=== PATIENT | male | born 1940 | race Caucasian/White ===

== ENCOUNTER 2021-04-12 10:08 | Outpatient (CLI) | payer MEDICARE, SELFPAY ==
--- NOTE | ~2021-04-12 | XR_ITS ---
EXAMINATION: XR toe 1st RT min 2V DATE: 04/12/2021 11:03 INDICATION: Right great toe pain. Gout. TECHNIQUE: Dorsal plantar, lateral and 2 oblique views of the right first toe were obtained. COMPARISON: None FINDINGS: Bone alignment is normal. No fracture. Polyarticular osteoarthritis, moderate severity at the first m etatarsophalangeal joint and minimal to mild at a few tarsal metatarsal and interphalangeal joints. N o erosions to suggest gout or other inflammatory arthritis. Small heterotopic ossification at the diamante ntar aspect of the foot posteriorly along the plantar aponeurosis. IMPRESSION: Moderate osteoarthritis at the first metatarsophalangeal joint. Reviewed, dictated and finalized at location A.
[2021-04-12 20:50] LABS: Hematocrit 44.2 % (42.0-52.0); Mean Corpuscular HGB Conc 31.7 g/dl (32-36); Mean Corpuscular Volume 104.2 fl (80-100); Mean Platelet Volume 11.5 fl (7.4-10.4); Platelet Count Result 257 k/mm3 (150-375); Red Blood Count 4.24 M/mm3 (4.6-6.20); White Blood Count 4.8 K/mm3 (4.5-10.0)
[2021-04-12 20:59] LABS: Alanine Aminotransferase 15 U/L (4-50); Albumin Level 4.4 g/dL (3.5-5.1); Alkaline Phosphatase 121 U/L (38-126); Anion Gap 8 mmol/L (8-16); Aspartate Amino Transferase 25 U/L (17-59); Bilirubin,Total 0.6 mg/dL (0.2-1.3); Blood Urea Nitrogen 16 mg/dL (9-20); Carbon Dioxide 29 mmol/L (22-30); Chloride 105 mmol/L (98-107); Cholesterol 184 mg/dL (0-200); Estimated Glomerular Filt Rate 53; Glucose 84 mg/dL (65-110); HDL Direct 67 mg/dL; Potassium 4.6 mmol/L (3.4-5.0); Sodium 142 mmol/L (137-145); Triglycerides 122 mg/dL (<150); Uric Acid 3.6 mg/dL (3.5-8.5)
[2021-04-12 21:12] LABS: LDL Cholesterol Direct 101 mg/dL
[2021-04-12 21:29] LABS: Prostate Specific Antigen 0.5 ng/mL (< OR = 4.0)
[2021-04-13 13:56] LABS: Free T4 Free Thyroxine Reflex 1.25 ng/dL (0.78-2.19)
[2021-04-13 15:01] LABS: Total Triiodothyronine (T3) 1.19 NG/ML (0.97-1.69)
[2021-04-19 13:34] LABS: Amphetamines NEGATIVE ng/mL (<500); Barbiturates NEGATIVE ng/mL (<300); Benzodiazepines NEGATIVE ng/mL (<100); Cocaine Metabolite NEGATIVE ng/mL (<100); Codeine NEGATIVE ng/mL (<50); Hydrocodone 230 ng/mL (<50); Hydromorphone NEGATIVE ng/mL (<50); Marijuana Metabolite NEGATIVE ng/mL (<20); Methadone Metabolite NEGATIVE ng/mL (<100); Morphine NEGATIVE ng/mL (<50); Norhydrocodone 570 ng/mL (<50); Opiates POSITIVE ng/mL (<100); Oxidant NEGATIVE mcg/mL (<200)
== END 2021-04-12 10:09 | disposition home or self-care (01) ==
PROVIDERS: PCP Family Medicine; Visit Provider Family Medicine
DX: B35.1 Tinea unguium (principal); M10.9 Gout, unspecified; E78.5 Hyperlipidemia, unspecified; Z00.00 Encounter for general adult medical examination without abnormal findings; Z79.899 Other long term (current) drug therapy; Z12.5 Encounter for screening for malignant neoplasm of prostate; F41.9 Anxiety disorder, unspecified
CPT/HCPCS: 36415; 73660; 80053; 80061; 80299; 84153; 84439; 84443; 84480; 84550; 85027; G0103

== ENCOUNTER 2021-04-20 08:17 | Outpatient (CLI) | payer MEDICARE, SELFPAY ==
[2021-04-20 23:08] LABS: Free T4 Free Thyroxine Reflex 1.24 ng/dL (0.78-2.19)
[2021-04-21 01:17] LABS: Total Triiodothyronine (T3) 1.15 NG/ML (0.97-1.69)
== END 2021-04-20 08:18 | disposition home or self-care (01) ==
PROVIDERS: PCP Family Medicine; Visit Provider Family Medicine
DX: Z51.81 Encounter for therapeutic drug level monitoring (principal); Z79.899 Other long term (current) drug therapy
CPT/HCPCS: 36415; 84439; 84443; 84480

== ENCOUNTER 2021-10-20 08:26 | Outpatient (CLI) | payer MEDICARE, SELFPAY ==
[2021-10-20 18:21] LABS: Hematocrit 44.2 % (42.0-52.0); Hemoglobin 14.1 g/dL (14.0-18.0); Mean Corpuscular HGB Conc 31.9 g/dl (32-36); Mean Corpuscular Hemoglobin 32.7 pg (26-34); Mean Corpuscular Volume 102.6 fl (80-100); Mean Platelet Volume 11.3 fl (7.4-10.4); Platelet Count Result 218 k/mm3 (150-375); Red Blood Count 4.31 M/mm3 (4.6-6.20); White Blood Count 5.2 K/mm3 (4.5-10.0)
[2021-10-20 18:28] LABS: Alanine Aminotransferase 17 U/L (4-50); Alkaline Phosphatase 104 U/L (38-126); Anion Gap 9 mmol/L (8-16); Aspartate Amino Transferase 25 U/L (17-59); Bilirubin,Total 0.4 mg/dL (0.2-1.3); Blood Urea Nitrogen 18 mg/dL (9-20); Calcium 8.6 mg/dL (8.4-10.2); Carbon Dioxide 23 mmol/L (22-30); Chloride 108 mmol/L (98-107); Cholesterol 196 mg/dL (0-200); Estimated Glomerular Filt Rate 53; Glucose 127 mg/dL (65-110); HDL Direct 66 mg/dL; Potassium 4.7 mmol/L (3.4-5.0); Sodium 140 mmol/L (137-145); Triglycerides 75 mg/dL (<150); Uric Acid 8.6 mg/dL (3.5-8.5)
[2021-10-20 18:39] LABS: LDL Cholesterol Direct 103 mg/dL
[2021-10-20 20:09] LABS: Total Triiodothyronine (T3) 1.04 NG/ML (0.97-1.69)
[2021-10-23 14:43] LABS: Amphetamines NEGATIVE ng/mL (<500); Barbiturates NEGATIVE ng/mL (<300); Benzodiazepines NEGATIVE ng/mL (<100); Cocaine Metabolite NEGATIVE ng/mL (<100); Codeine NEGATIVE ng/mL (<50); Hydrocodone NEGATIVE ng/mL (<50); Hydromorphone NEGATIVE ng/mL (<50); Marijuana Metabolite NEGATIVE ng/mL (<20); Methadone Metabolite NEGATIVE ng/mL (<100); Morphine NEGATIVE ng/mL (<50); Norhydrocodone NEGATIVE ng/mL (<50); Noroxycodone 170 ng/mL (<50); Opiates NEGATIVE CONFIRMED ng/mL (<100); Oxidant NEGATIVE mcg/mL (<200); pH 6.5 (4.5-9.0)
[2021-10-24 03:11] LABS: Thyroid Peroxidase Antibodies <1 IU/mL (<9)
== END 2021-10-20 08:27 | disposition home or self-care (01) ==
LOC: ANHBWCLAB 08:28
PROVIDERS: PCP Family Medicine; Visit Provider Family Medicine
DX: E78.5 Hyperlipidemia, unspecified (principal); F41.9 Anxiety disorder, unspecified; M10.9 Gout, unspecified; R79.89 Other specified abnormal findings of blood chemistry; Z79.899 Other long term (current) drug therapy
CPT/HCPCS: 36415; 80053; 80061; 80299; 84439; 84443; 84480; 84550; 85027; 86376

== ENCOUNTER 2022-04-21 08:34 | Outpatient (CLI) | payer MEDICARE, SELFPAY ==
[2022-04-21 18:37] LABS: Hematocrit 38.9 % (42.0-52.0); Hemoglobin 12.2 g/dL (14.0-18.0); Mean Corpuscular HGB Conc 31.4 g/dl (32-36); Mean Corpuscular Hemoglobin 31.8 pg (26-34); Mean Corpuscular Volume 101.3 fl (80-100); Platelet Count Result 216 k/mm3 (150-375); Red Blood Count 3.84 M/mm3 (4.6-6.20); Red Cell Distribution Width 13.3 % (11.5-14.5); White Blood Count 4.8 K/mm3 (4.5-10.0)
[2022-04-21 20:12] LABS: Free T4 Free Thyroxine 1.18 ng/mL (0.78-2.19)
[2022-04-21 20:28] LABS: Anion Gap 11 mmol/L (8-16); Blood Urea Nitrogen 21 mg/dL (9-20); Calcium 8.8 mg/dL (8.4-10.2); Carbon Dioxide 25 mmol/L (22-30); Chloride 107 mmol/L (98-107); Estimated Glomerular Filt Rate > 60; Glucose 81 mg/dL (65-110); Potassium 4.1 mmol/L (3.4-5.0); Sodium 143 mmol/L (137-145)
[2022-04-24 05:28] LABS: Triiodothyronine T3 Free 2.9 pg/mL (2.3-4.2)
== END 2022-04-21 08:35 | disposition home or self-care (01) ==
PROVIDERS: PCP Family Medicine; Visit Provider Family Medicine
DX: R79.89 Other specified abnormal findings of blood chemistry (principal); M10.9 Gout, unspecified; D64.9 Anemia, unspecified; Z51.81 Encounter for therapeutic drug level monitoring; Z79.899 Other long term (current) drug therapy
CPT/HCPCS: 36415; 80048; 84439; 84443; 84481; 85027

== ENCOUNTER 2022-08-04 08:51 | Outpatient (CLI) | payer MEDICARE, SELFPAY ==
[2022-08-04 19:48] LABS: Basophils Absolute Auto 0.1 K/mm3 (0.0-0.1); Basophils Percent Auto 1.3 % (0.2-1.2); Eosinophils Absolute Auto 0.3 K/mm3 (0-0.3); Eosinophils Percent Auto 4.8 % (0-4.4); Hematocrit 42.7 % (42.0-52.0); Hemoglobin 13.5 g/dL (14.0-18.0); Immature Granulocyte Absolute 0.01 K/mm3 (0.00-0.031); Immature Granulocyte Percent A 0.2 % (0-0.5); Lymphocytes Absolute Auto 1.28 K/mm3 (0.9-3.2); Lymphocytes Percent Auto 23.8 % (18.3-44.2); Mean Corpuscular HGB Conc 31.6 g/dl (32-36); Mean Corpuscular Volume 101.2 fl (80-100); Mean Platelet Volume 11.6 fl (7.4-10.4); Monocytes Absolute Auto 0.4 K/mm3 (0.1-0.6); Monocytes Percent Auto 7.1 % (2.6-8.5); Neutrophils Absolute Auto 3.4 K/mm3 (1.3-6.7); Neutrophils Percent Auto 62.8 % (45.5-73.1); Platelet Count Result 249 k/mm3 (150-375); Red Blood Count 4.22 M/mm3 (4.6-6.20); Red Cell Distribution Width 13.3 % (11.5-14.5); White Blood Count 5.4 K/mm3 (4.5-10.0)
[2022-08-04 21:17] LABS: Uric Acid 7.1 mg/dL (3.5-8.5)
== END 2022-08-04 08:52 | disposition home or self-care (01) ==
LOC: ANHBWCLAB 08:52
PROVIDERS: PCP Family Medicine; Visit Provider Family Medicine
DX: Z79.899 Other long term (current) drug therapy (principal); R79.89 Other specified abnormal findings of blood chemistry; M10.9 Gout, unspecified
CPT/HCPCS: 36415; 84443; 84550; 85025

== ENCOUNTER 2022-10-05 08:08 | Outpatient (CLI) | payer MEDICARE, SELFPAY ==
[2022-10-05 20:20] LABS: Anion Gap 4 mmol/L (8-16); Blood Urea Nitrogen 22 mg/dL (9-20); Calcium 8.5 mg/dL (8.4-10.2); Carbon Dioxide 30 mmol/L (22-30); Chloride 108 mmol/L (98-107); Estimated Glomerular Filt Rate 53; Glucose 80 mg/dL (65-110); Potassium 4.4 mmol/L (3.4-5.0); Sodium 142 mmol/L (137-145)
== END 2022-10-05 08:09 | disposition home or self-care (01) ==
PROVIDERS: PCP Family Medicine; Visit Provider Family Medicine
DX: E87.5 Hyperkalemia (principal)
CPT/HCPCS: 36415; 80048

== ENCOUNTER 2023-03-08 09:38 | Outpatient (CLI) | payer MEDICARE, SELFPAY ==
[2023-03-08 18:39] LABS: Basophils Absolute Auto 0.1 K/mm3 (0.0-0.1); Basophils Percent Auto 1.5 % (0.2-1.2); Eosinophils Absolute Auto 0.2 K/mm3 (0-0.3); Eosinophils Percent Auto 3.8 % (0-4.4); Hematocrit 37.6 % (42.0-52.0); Hemoglobin 11.3 g/dL (14.0-18.0); Immature Granulocyte Absolute 0.02 K/mm3 (0.00-0.031); Immature Granulocyte Percent A 0.3 % (0-0.5); Lymphocytes Absolute Auto 1.18 K/mm3 (0.9-3.2); Lymphocytes Percent Auto 20.1 % (18.3-44.2); Mean Corpuscular HGB Conc 30.1 g/dl (32-36); Mean Corpuscular Hemoglobin 30.9 pg (26-34); Mean Corpuscular Volume 102.7 fl (80-100); Mean Platelet Volume 11.5 fl (7.4-10.4); Monocytes Absolute Auto 0.4 K/mm3 (0.1-0.6); Monocytes Percent Auto 7.3 % (2.6-8.5); Neutrophils Absolute Auto 3.9 K/mm3 (1.3-6.7); Platelet Count Result 245 k/mm3 (150-375); Red Blood Count 3.66 M/mm3 (4.6-6.20); Red Cell Distribution Width 14.6 % (11.5-14.5); White Blood Count 5.9 K/mm3 (4.5-10.0)
[2023-03-08 18:58] LABS: Alanine Aminotransferase 18 U/L (6-50); Albumin Level 4.1 g/dL (3.5-5.1); Alkaline Phosphatase 103 U/L (38-126); Anion Gap 3 mmol/L (8-16); Aspartate Amino Transferase 35 U/L (17-59); Bilirubin,Total 0.5 mg/dL (0.2-1.3); Blood Urea Nitrogen 31 mg/dL (9-20); Calcium 8.7 mg/dL (8.4-10.2); Carbon Dioxide 27 mmol/L (22-30); Chloride 106 mmol/L (98-107); Cholesterol 176 mg/dL (0-200); Estimated Glomerular Filt Rate 39; Glucose 114 mg/dL (65-110); HDL Direct 57 mg/dL; Potassium 4.7 mmol/L (3.4-5.0); Sodium 136 mmol/L (137-145); Triglycerides 79 mg/dL (<150); Uric Acid 8.5 mg/dL (3.5-8.5)
[2023-03-08 19:10] LABS: LDL Cholesterol Direct 91 mg/dL
[2023-03-08 20:53] LABS: Free T4 Free Thyroxine Reflex 1.12 ng/dL (0.78-2.19)
[2023-03-08 21:32] LABS: Total Triiodothyronine (T3) 0.85 NG/ML (0.97-1.69)
== END 2023-03-08 09:39 | disposition home or self-care (01) ==
LOC: ANHBWCLAB 09:40
PROVIDERS: PCP Nurse Practitioner Adult Health; Visit Provider Nurse Practitioner Adult Health
DX: I10 Essential (primary) hypertension (principal); M10.9 Gout, unspecified; Z51.81 Encounter for therapeutic drug level monitoring
CPT/HCPCS: 36415; 80048; 80061; 80076; 84439; 84443; 84480; 84550; 85025

== ENCOUNTER 2023-05-24 10:34 | Outpatient (CLI) | payer MEDICARE, SELFPAY ==
--- NOTE | ~2023-05-24 | XR_ITS ---
EXAMINATION: XR_[id number]_CR DATE: 05/24/2023 11:02 INDICATION: Unspecified fall, initial encounter. TECHNIQUE: A frontal view of the chest and 2 views on 3 radiographs of the right ribs and 2 views on 3 radiographs of the left testis were obtained. COMPARISON: None. FINDINGS: CHEST SINGLE VIEW: There is a small right pleural effusion. There is mild atelectasis at right lung b ase. No pneumothorax. The heart size is normal. Median sternotomy wires and mediastinal surgical clip s are seen, likely from prior coronary artery bypass grafting. There are surgical clips in the abdome n. BILATERAL RIBS: There are old healed bilateral rib fractures. IMPRESSION: 1. No acute rib fracture. 2. Small right pleural effusion. Reviewed, dictated and finalized at location E. 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
== END 2023-05-24 10:35 | disposition home or self-care (01) ==
LOC: ANHBWCLAB 10:44 → ANHBWCIMG 10:57
PROVIDERS: PCP Nurse Practitioner Adult Health; Visit Provider Nurse Practitioner Adult Health
DX: R07.9 Chest pain, unspecified (principal); J90 Pleural effusion, not elsewhere classified
CPT/HCPCS: 71111

== ENCOUNTER 2025-03-10 13:50 | Outpatient (CLI) | payer MEDICARE, SELFPAY ==
--- OUTSIDE RECORDS SUMMARY | 2025-03-06 09:28 | XMS_ITS | Continuity of Care Document ---
Author Name [facility] Organization [facility] Care Team Providers Care Chief Innovation Officer Name Role Phone [facility] Unavailable Unavailable Problems Combined list of problems from [facility] and [facility] facilities. It does not include entries that were removed or entered in error. Problem Status Onset Date Problem Type Date of Resolution Comments Source Allergic Rhinitis ([facility] [id number]) Active Condition [facility] Constipation ([facility] [id number]) Active Condition [facility] COPD - Chronic Obstructive Pulmonary Disease ([facility] [id number]) Active Condition [facility] Exposure to Potentially Hazardous Substance ([facility] [id number]) Active Condition [facility] Gout ([facility] [id number]) Active Condition [facility] Hearing Loss ([facility] [id number]) Active Condition [facility] HTN - Hypertension ([facility] [id number]) Active Condition [facility] Hyperlipidemia ([facility] [id number]) Active Condition [facility] Vitamin B12 Deficiency ([facility] [id number]) Active Condition [facility] Diagnosis: ICD-10-CM Z76.89 Persons encountering health services in oth circumstances Active Diagnosis [facility] Medications Combined list of outpatient medications from [facility] and [facility] facilities.Medications provided include 1) outpatient medications from the last 15 months, and 2) patient-reported medications. Medication Details Route Status Patient Instructions Prescription Expires Prescription Number Last Dispense Date Ordering Provider Order Date Order Qty Source ALBUTEROL SO4 90MCG/ACTUA T (CFC-F) INHL,ORAL,8 .5GM INHALE 1 PUFF BY ORAL INHALATI ON FOUR TIMES A DAY NEEDED RESPIR ATORY (INHAL ATION) ACTIVE VICKY,EARNESTINE SSA S 2024 [facility] ALLOPURINOL 100MG TAB TAKE ONE TABLET BY MOUTH ONCE A DAY ORAL ACTIVE VICKY,EARNESTINE SSA S 2024 [facility] AMLODIPINE BESYLATE 5MG TAB TAKE ONE TABLET BY MOUTH ONCE A DAY [facility] ASCORBIC ACID 500MG TAB TAKE ONE TABLET BY MOUTH ONCE A DAY ORAL [facility] 2024 [facility] ASPIRIN 81MG TAB,CHEWABL E CHEW AND SWALLOW ONE TABLET BY MOUTH ONCE A DAY ORAL [facility] 2024 [facility] ATORVASTATI N CA 80MG TAB TAKE ONE TABLET BY MOUTH EVERY EVENING ORAL [facility] 2024 [facility] BEMPEDOIC ACID 180MG/EZETI MIBE 10MG TAB,ORAL TAKE ONE TABLET BY MOUTH ONCE A DAY ORAL [facility]IVE [facility] 2024 [facility] BENZONATATE 100MG CAP TAKE 1 CAPSULE BY MOUTH THREE TIMES A DAY NEEDED ORAL ACTIVE [facility] 2024 [facility] CETIRIZINE HCL 10MG TAB TAKE ONE TABLET BY MOUTH ONCE A DAY ORAL ACTIVE [facility] 2024 [facility] CLOPIDOGREL BISULFATE 75MG TAB TAKE ONE TABLET BY MOUTH ONCE A DAY ORAL ACTIVE [facility] S 2024 [facility] CYANOCOBALA MIN 1000MCG TAB TAKE ONE TABLET BY MOUTH ONCE A DAY ORAL ACTIVE [facility] S 2024 [facility] FLUTICASONE PROPIONATE 50MCG/SPRAY SOLN,NASAL, 16GM INSTILL 1 SPRAY IN NOSTRIL( S) ONCE A DAY NASAL [facility] 2024 [facility] NITROGLYCER IN 0.4MG TAB,SUBLING UAL DISSOLVE ONE TABLET UNDER THE TONGUE ONE-TIME SUBLIN GUAL [facility] 2024 [facility] SENNOSIDES 8.6MG TAB TAKE ONE TABLET BY MOUTH ONCE A DAY ORAL [facility] 2024 [facility] Immunizations Combined list of available immunizations from the Department of Defense and Veterans Affairs facilities. Immunization Series Date Given Administered By Site Reaction Lot Number CVX Code Drug Industrial Analyst Status Comments Source INFLUENZA, UNSPECIFIED FORMULATION 1 2016 88 complet ed HISTORICA L INFORMATI ON - FROM OTHER REGISTRY, [facility] PNEUMOCOCCAL CONJUGATE PCV 13 1 2012 133 complet ed HISTORICA L INFORMATI ON - FROM OTHER REGISTRY, [facility] Vital Signs Combined list of inpatient and outpatient Vital Signs from [facility] and [facility], ranging from 12 months to all on record, depending upon the facility. Vital Sign Value Date Comments Source SYSTOLIC BLOOD PRESSURE 146 02/19/2025 12:39:15 [facility] DIASTOLIC BLOOD PRESSURE 71 02/19/2025 12:39:15 [facility] PULSE OXIMETRY 99 % 02/19/2025 12:39:15 [facility] WEIGHT 148 02/19/2025 12:39:15 [facility] BMI 22 kg/m2 02/19/2025 12:39:15 [facility] PAIN 5 02/19/2025 12:39:15 [facility] HEIGHT 69 02/19/2025 12:39:15 [facility] TEMPERATURE 97.5 02/19/2025 12:39:15 [facility] PULSE 60 02/19/2025 12:39:15 [facility] RESPIRATION 18 02/19/2025 12:39:15 [facility] Encounters Combined list of: 1) Encounters from Department of Veterans Affairs facilities going backup to the last 18 months, not all [place] inpatient encounters are included; 2) Encounters from the [facility] facilities going backup to 280 months. Location Location Details Encounter Type Encounter Number Reason For Visit Attending Provider ADM Date DC Date Status Disposition Source [facility] Outpatient Encounter [id number] 01/22 [facility] Outpatient Encounter [id number] JESS KLINE 01[facility] En[facility] [id number] MAMIE KLINENAHED Ashley [facility] MEASURE BLOOD OXYGEN LEVEL [id number] Diagnos is: ICD-10- CM Z76.89 [facility] CHEN Mondragon S 02/19 [facility] Social History Combined list of available smoking, tobacco, and other social history from Department of Defense and Veterans Affairs facilities. Social History Type Response Date Comment Sourc e Tobacco smoking status NHIS VA-TOBACCO USE FORMER CIGARETTES 02/19/2025 [facility] History of tobacco use PA-TOBACCO NEVER USED OTHER TYPE 02/19/2025 [facility] Plan of Care List of future care activities from Department of Veterans Affairs facilities. Additional future care activities may be listed in the Assessment and Plan section. Date/Time Care Activity Care Activity Detail Facili ty 04/30/2025 AMBULATORY - MEDICINE AMBULATORY - MEDICI NE [facility]
--- OUTSIDE RECORDS SUMMARY | 2025-03-10 13:55 | XMS_ITS | Clinical Summary ---
Author Organization [facility] Address [address] [place] [address] Phone Care Team Providers Care Software Applications Developer Name Role Phone Brian Fuller MD Primary Care Provider [phone] Allergies No known active allergies Medications montelukast (SINGULAIR) 10 MG Tablet Take 1 Tablet by mouth daily. 2 Active aspirin EC 81 MG Tablet Delayed Response Take 1 Tablet by mouth daily. 100 Tablet 2 Active albuterol 108 (90 Base) MCG/ACT Aerosol Solution take 2 Puffs by inhalation every 4 hours as needed for Wheezing. 8.5 g 2 Active allopurinol (ZYLOPRIM) 100 MG Tablet Take 100 mg by mouth daily. Active HYDROcodone-hiren taminophen (NORCO) 7.5-325 MG Tablet Take 1 Tablet by mouth every 8 hours as needed. Active Ascorbic Acid 500 MG Chewable Tablet Take 500 mg by mouth daily. Active Active Problems Problem Noted Date Diagnosed Date CVA (cerebral vascular accident) 03/09/2022 Hypertension 03/09/2022 Acute metabolic encephalopathy 01/12/2022 COVID-19 01/12/2022 Hyponatremia 01/12/2022 Stage 3 chronic kidney disease 01/12/2022 COPD without exacerbation 01/12/2022 CAD (coronary artery disease) 01/12/2022 Gout Resolved Problems Problem Noted Date Diagnosed Date Resolved Date CVA (cerebral vascular accident) 03/07/2022 03/07/2022 TIA (transient ischemic attack) 03/06/2022 03/07/2022 Social History Tobacco Use Types Packs/Day Years Used Date Smoking Tobacco: Former Smokeless Tobacco: Never Alcohol Use Standard Drinks/Week Comments Yes 0 (1 standard drink = 0.6 oz pur e alcohol) 2x per week Sexually Active Control Partners Comments Not Currently Sex and Gender Information Value Date Recorded Sex Assigned at Not on file Legal Sex Male 10:43 PM CDT Gender Identity Not on file Sexual Orientation Not on file Last Filed Vital Signs Vital Sign Reading Time Taken Comments Blood Pressure 108/85 03/10/2022 12:00 PM CDT Pulse 67 03/10/2022 12:00 PM CDT Temperature 36.1 C (97 F) 03/10/2022 12:00 PM CDT Respiratory Rate 13 03/10/2022 12:00 PM CDT Oxygen Saturation 99% 03/10/2022 12:00 PM CDT Inhaled Oxygen Concentration - - Weight 72.6 kg (160 lb) 03/09/2022 11:24 AM CDT Height 175.3 cm (5' 9) 03/09/2022 11:24 AM CDT Body Mass Index 23.63 03/09/2022 11:24 AM CDT Plan of Treatment Health Maintenance Due Date Last Done Comments Hepatitis C Virus (HCV) Screening 1940 TdaP Immunization 1940 Zoster Immunization (1 of 2) 1990 Respiratory Syncytial Virus (RSV) Immunization (Adult) (1 - 1-dose 75+ series) 10/24/2015 SARS-COV-2 Immunization ( season) 2024 01/20/2021, 10/13/2020 Influenza Immunization (#1) 03/17/202507/17, 04/30/2017, 05/23/2014, Additional history exists DTaP/Tdap/Td Immunization Discontinued 03/19/2009 Pneumococcal Immunization (50+ years) Completed 2012, 06/03/2008 Hepatitis B Immunization Aged Out No longer eligible based on patient's age to complete this topic Human Papillomavirus (HPV) Immunization Aged Out No longer eligible based on patient's age to complete this topic Meningococcal Immunization (ACWY) Aged Out No longer eligible based on patient's age to complete this topic Rotavirus Immunization Aged Out No lo nger eligible based on patient's age to complete this topic Insurance MEDICARE C [employer] Advance Directives * Full Code (Latest Code Status on File) Date Activated Date Inactivated Comments 03/09/2022 1:17 PM 03/10/2022 5:10 PM CPR-Full Gato atment: FULL ARREST: Attempt Resuscitation/CPR wit intubation and mechanical ventilation. PRE-ARREST: Use entire range of life support measures to stabilize the patient. * Full Code Date Activated Date Inactivated Comments 03/06/2022 7:36 PM 03/07/2022 7:39 PM CPR-Full Gato atment: FULL ARREST: Attempt Resuscitation/CPR wit intubation and mechanical ventilation. PRE-ARREST: Use entire range of life support measures to stabilize the patient. * Full Code Date Activated Date Inactivated Comments 01/12/2022 9:43 PM 01/13/2022 4:24 PM CPR-Full Agto atment: FULL ARREST: Attempt Resuscitation/CPR wit intubation and mechanical ventilation. PRE-ARREST: Use entire range of life support measures to stabilize the patient. Care Teams Software Applications Developer Relationship Specialty Start Date End Date Brian Fuller MD PCP - General Family Medicine 01/12/22
--- OUTSIDE RECORDS SUMMARY | 2025-03-10 13:55 | XMS_ITS | Clinical Summary ---
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 many places have you lived? 1 07/28/2023 In the last 12 months, was t here a time when you did not have a steady place to sleep or slept in a fdc (including now)? No 07/28/2023 Housing Stability Vital Sign Answer Vj e Recorded In the last 12 months, was t here a time when you were not able to pay the mortgage or rent on time? No 08/26/2024 Number of Times Moved in the Last Year Not on fi le 08/26/2024 At any time in the past 12 m [facility], were you homeless or living in a fdc (including now)? No 08/26/2024 Personal Safety Answer Date Recorded Have you ever been in or are you currently in a harmful physical or emotional relationship or is someone making you feel afraid or unsafe? Denies 11/04/2024 Education Answer Date Recorded What is the highest level of school you have completed or the highest degree you have received? 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 Gender Identity Not on file Sexual Orientation Not on file Obstetrics History Last Filed Vital Signs Vital Sign Reading Time Taken Comments Blood Pressure 164/76 03/06/2025 3:11 PM CDT Pulse 53 03/06/2025 3:11 PM CDT Temperature 36.4 C (97.5 F) 11/04/2024 4:11 PM CDT Respiratory Rate 15 03/06/2025 3:11 PM CDT Oxygen Saturation 97% 03/06/2025 3:11 PM CDT Inhaled Oxygen Concentration - - Weight 68 kg (150 lb) 11/04/2024 4:11 PM CDT Height 175.3 cm (5' 9) 10/05/2024 5:53 PM CDT Body Mass Index 22.15 10/05/2024 5:53 PM CDT Plan of Treatment Health Maintenance Due Date Last Done Comments Colon Cancer Screening-Colonoscopy 1940 Hepatitis B Screening 1958 Zoster Vaccine (1 of 2) 1990 DTaP/Tdap/Td Vaccine (1 - Tdap) 03/20/2009 9 Well Visit 65+ 02/28/2019 02/28/2018, 02/13/2017 Depression Screening 10/08/2023 10/07/2022, 06/17/2019, 03/06/2019, Additional history exists Prostate Cancer Screening-PSA 07/11/2024 07/11/2023, 12/27/2016 Influenza Vaccine (#1) 2025 , 04/30/2017, 05/23/2014, Additional history exists Fall Risk Assessment 03/06/2026 03/06/2025, 06/17/2019, 03/06/2019, Additional history exists Pneumococcal vaccine 65+ Completed 2012, 05/17 Medical Devices Implanted Type 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 Device 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 Shelf Expiration Date Model / Serial / Lot Medtronic Card Vasc Surgery 3.0 X 22mm [place] Rx Coronary Stent [id number] - [id number] Implanted:Qty: 1 on 08/02/2023 by Jean-Pierre Jones MD at [facility] Stent Left: Circumflex Coronary Artery Medtronic Card Vasc Surgery 11/24/2025 [id number] / / [id number] 001 Medtronic Card Vasc Surgery 2.50 X 15mm [place] Rx Coronary Stent [id number] - [id number] Implanted:Qty: 1 on 08/02/2023 by Jean-Pierre Jones MD at [facility] Stent Left: Circumflex Coronary Artery Medtronic Card Vasc Surgery 04/11/2026 [id number] / / [id number] 001 [employer] Gem 60mm Sector Hip Shell Acetabular Gription Sterile Latex Free [id number] - [id number] Implanted:Qty: 1 on 10/10/2022 by Petr Mccartney MD at [facility] Right: Hip [employer] 05/16/2032 [id number] / / [id number] [employer] Gem 60mm 36mm Hip Neutral Liner Acetabular Altrx Sterile Latex Free [id number] - [id number] Implanted:Qty: 1 on 10/10/2022 by Petr Mccartney MD at [facility] Right: Hip [employer] 05/16/2027 [id number] / / [id number] [employer] Actis Collar Hip 9 High Offset Stem Femoral [id number] - [id number] Implanted:Qty: 1 on 10/10/2022 by Petr Mccartney MD at [facility] Right: Hip [employer] 11/14/2031 [id number] / / [id number] [employer] Articul/Rodrigue 36mm Cementless Hip +5mm 12/14 [place] Femoral Latex Free [id number] - [id number] Implanted:Qty: 1 on 10/10/2022 by Petr Mccartney MD at [facility] Right: Hip [employer] 08/16/2027 [id number] / / [id number] [employer] Angio-Seal Vip 6fr Closere Device [id number] - [id number] Implanted:Qty: 1 on 06/05/2023 by Jean-Pierre Jones MD at [facility] [employer] 12/26/2023 [id number] / / [id number] [employer] Angio-Seal Vip 6fr Closere Device [id number] - [id number] Implanted:Qty: 1 on 08/02/2023 by Jean-Pierre Jones MD at [facility] Right: Common Femoral Artery [employer] 03/09/2024 [id number] / / [id number] [employer] Angio-Seal Vip 6fr Closere Device [id number] - [id number] Implanted:Qty: 1 on 07/15/2024 by Jean-Pierre Jones MD at [facility] [employer] 12/26/2024 [id number] / / [id number] Procedures Procedure Name Priority Date/Time Associated Diagnosis Comments PSA SCREEN Add-On 07/11/2023 2:33 PM SET DESIGNER from Last 3 Months or Most Recently Relevant to Health Maintenance Results * PSA screen (07/11/2023 2:33 PM SET DESIGNER) PSA-Total 0.58 <=6.20 ng/mL [facility]I SORIA ([facility]) Comment: Interpretive Data AGE SEX REFERENCE INTERVAL 0 minutes-150 years Female None 0 minutes-49 years Male None 50-59 years Male 0-3.90 60-69 years Male 0-5.40 70-79 years Male 0-6.20 80-150 years Male 0-6.20 The Nikki PSA Total assay procedure was used. Results from different manufacturers or methods may not be comparable. Serial testing should be performed using the same method. Current interpretive data last revised 21. Blood 07/11/2023 2:33 PM SET DESIGNER 07/11/2023 3:35 PM SET DESIGNER Kyle Valladares MD LAB BLOOD ORDERABLES Final Result GABI YANG ([facility]) 1 [facility] Department [place] [address] from Last 3 Months or Most Recently Relevant to Health Maintenance Insurance [facility] Member Subscriber Plan / Payer (Ef fective 2019-Present) Name:Alex Valencia Relation to Subscriber:Self Name:Alex Valencia Payer ID:[id number] (NAIC) Type:SHANNON LEWIS Address: [facility] [id number] [id number] [employer] MEDICARE HMO HU[employer]NA MEDICARE HMO Advance Directives For more information, please contact: [phone] * Full Code (Latest Code Status on File) Date Activated Date Inactivated Comments 08/25/2024 7:15 PM 08/26/2024 10:12 PM * Full Code Date Activated Date Inactivated Comments 07/15/2024 1:22 PM 07/16/2024 4:52 PM * Full Code Date Activated Date Inactivated Comments 12/18/2023 10:36 AM 12/18/2023 7:14 PM * Full Code Date Activated Date Inactivated Comments 08/02/2023 11:37 AM 08/04/2023 4:47 PM * Full Code Date Activated Date Inactivated Comments 07/27/2023 8:57 PM 07/28/2023 6:10 PM Care Teams 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 Relationship Specialty Start Date End Date Meghan Moise NP [address] [place] [address] [address] [place] [id number] PCP - General Nurse Practitioner 11/04/24 Petr Mccartney MD [address] [place] [address] [address] [place] [address] Surgeon Orthopedic Surgery 10/11/22 Sonu Marquez MD [address] [place] [address] [address] [place] [address] Consulting Physician Pulmonary Disease 06/22/23 Jesú[place] [id number] [address] [facility] [address] [place] [address] Nurse Practitioner Pain Management 09/19/24 [place] [id number] [address] [facility] [address] [place] [address] Consulting Physician Pain Management 09/19/24
--- OUTSIDE RECORDS SUMMARY | 2025-03-10 13:55 | XMS_ITS | Clinical Summary ---
Author Organization [facility] Facility Address [address] [address] Care Team Providers Care Manager Business Process Name Role Phone Jean-Pierre Jones MD Primary Care Provider Unav ailable Medications albuterol HFA (PROVENTIL HFA;VENTOLIN HFA) 108 (90 Base) MCG/ACT inhaler Inhale 2 puffs every 6 (six) hours if needed for wheezing Active allopurinol (ZYLOPRIM) 100 MG tablet Take 100 mg by mouth 1 (one) time each day Active ascorbic acid (VITAMIN C) 500 MG CR capsule Take 500 mg by mouth 1 (one) time each day Active aspirin (ST TERESA) 81 MG EC tablet Take 81 mg by mouth 1 (one) time each day Active atorvastatin (LIPITOR) 80 MG tablet Take 80 mg by mouth 1 (one) time each day Active benzonatate (TESSALON) 100 MG capsule Take 100 mg by mouth 3 (three) times a day if needed for cough Do not crush or chew. Active cetirizine (ZyrTEC) 10 MG tablet Take 10 mg by mouth 1 (one) time each day Active clopidogrel (PLAVIX) 75 MG tablet Take 75 mg by mouth 1 (one) time each day Active cyanocobalamin (VITAMIN B-12) 1000 MCG tablet Take 1,000 mcg by mouth 1 (one) time each day Active ezetimibe (ZETIA) 10 MG tablet Take 10 mg by mouth 1 (one) time each day Active HYDROcodone-acet aminophen (LORCET PLUS) 10-325 MG per tablet Take 1 tablet by mouth every 6 (six) hours if needed for moderate pain Active isosorbide mononitrate (IMDUR) 120 MG 24 hr tablet Take 120 mg by mouth 1 (one) time each day Do not crush or chew. Active nitroglycerin (NITROSTAT) 0.[address] 0.4 mg under the tongue every 5 (five) minutes if needed for chest pain Active ranolazine (RANEXA) 500 MG 12 hr tablet Take 500 mg by mouth in the morning and 500 mg in the evening. Do not crush, chew, or split.. Active sennosides-docus ate sodium (SENOKOT-S) 8.6-50 MG tablet Take 1 tablet by mouth 1 (one) time each day Active tamsulosin (FLOMAX) 0.4 MG 24 hr capsule Take 0.4 mg by mouth 1 (one) time each day Active Active Problems No known active problems Social History Tobacco Use Types Packs/Day Years Used Date Smoking Tobacco: Never Assessed Sex and Gender Information Value Date Recorded Sex Assigned at Not on file Legal Sex Male 1:56 PM EDT Gender Identity Not on file Sexual Orientation Not on file Plan of Treatment Health Maintenance Due Date Last Done Comments Influenza Vaccine (#1) 2025 7, 05/23/2014 Pneumococcal Vaccine: 50+ Years Completed 2012, 06/03/2008 Hepatitis B Vaccine Aged Out No longe r eligible based on patient's age to complete this topic Care Teams Manager Business Process Relationship Specialty Start Date End Date Jean-Pierre Jones MD [address] [place] [address] PCP - General Internal Medicine 01/11/24
[2025-03-10 19:14] LABS: Hematocrit 37.9 % (42.0-52.0); Hemoglobin 11.8 g/dL (14.0-18.0); Immature Granulocyte Percent A 0.4 % (0-0.5); Lymphocytes Absolute Auto 1.39 K/mm3 (0.9-3.2); Mean Corpuscular HGB Conc 31.1 g/dl (32-36); Mean Corpuscular Hemoglobin 31.1 pg (26-34); Mean Corpuscular Volume 100.0 fl (80-100); Nucleated Red Blood Cells Absolute Auto 0.000 K/mm3 (0.0-0.012); Nucleated Red Blood Cells Perc 0.0 % (0.0-0.2); Platelet Count Result 192 k/mm3 (150-375); Red Blood Count 3.79 M/mm3 (4.6-6.20); White Blood Count 5.5 K/mm3 (4.5-10.0)
[2025-03-10 19:52] LABS: Alanine Aminotransferase 17 U/L (6-50); Albumin Level 4.0 g/dL (3.5-5.1); Alkaline Phosphatase 109 U/L (38-126); Anion Gap 5 mmol/L (4-12); Aspartate Amino Transferase 30 U/L (17-59); Bilirubin,Total 0.4 mg/dL (0.2-1.3); Blood Urea Nitrogen 28 mg/dL (9-20); Calcium 8.8 mg/dL (8.4-10.2); Carbon Dioxide 27 mmol/L (22-30); Chloride 107 mmol/L (98-107); Cholesterol 172 mg/dL (0-200); Estimated Glomerular Filt Rate 40; Glucose 107 mg/dL (65-110); HDL Direct 47 mg/dL; Magnesium 2.4 mg/dL (1.6-2.3); Potassium 4.8 mmol/L (3.4-5.0); Sodium 139 mmol/L (137-145); Total Protein 6.6 g/dL (6.3-8.2); Triglycerides 171 mg/dL (<150)
[2025-03-10 20:27] LABS: Prostate Specific Antigen 1.2 ng/mL (< OR = 4.0)
[2025-03-10 20:52] LABS: Iron 95 ug/dL (49-181)
[2025-03-10 21:02] LABS: Percent Iron Saturation 31 % (20-50)
[2025-03-10 21:03] LABS: Vitamin B12 231.0 pg/mL (239-931)
[2025-03-10 21:24] LABS: Thyroid Stimulating Hormone Reflex 2.990 uIU/mL (0.465-4.68)
[2025-03-10 21:28] LABS: Ferritin 46.70 ng/mL (11.1-264)
== END 2025-03-10 13:51 | disposition home or self-care (01) ==
PROVIDERS: PCP Nurse Practitioner Adult Health; Visit Provider Nurse Practitioner Adult Health
DX: D64.9 Anemia, unspecified (principal); I10 Essential (primary) hypertension; Z12.5 Encounter for screening for malignant neoplasm of prostate
CPT/HCPCS: 36415; 80053; 80061; 82607; 82728; 82746; 83540; 83550; 83735; 84153; 84443; 85025; G0103